=== PATIENT | male | born 1995 | race Caucasian/White ===

== ENCOUNTER 2020-05-24 12:45 | Emergency (ER) | payer SELFPAY | END 2020-05-24 13:29 | disposition home or self-care (01) | LOC: MADERS 12:45 | DX: T25.222A Burn of second degree of left foot, initial encounter (principal); F17.210 Nicotine dependence, cigarettes, uncomplicated; X12.XXXA Contact with other hot fluids, initial encounter | CPT/HCPCS: 99283 ==

== ENCOUNTER 2021-01-01 00:13 | Emergency (ER) | payer SELFPAY ==
[2021-01-01] MEDS ORDERED: Ondansetron ODT 4 MG TAB ONE (01:06)
[2021-01-01 01:08] LABS: Bilirubin Negative (Negative); Blood, Urine Negative (Negative); Clarity Clear (Clear); Glucose, Urine (Dipstick) Negative (Negative); Ketone, Urine Negative (Negative); Leukocyte Negative (Negative); Nitrite Negative (Negative); Protein, Urine (Dipstick) Negative (Neg-Trace); Specific Gravity, Urine 1.025 (1.005-1.030)
== END 2021-01-01 01:15 | disposition short-term general hospital (02) ==
LOC: MADERS 00:13
DX: N50.812 Left testicular pain (principal); N50.811 Right testicular pain; F17.210 Nicotine dependence, cigarettes, uncomplicated
CPT/HCPCS: 81003; 99284; Q0162